=== PATIENT | male | born 1960 | race Caucasian/White ===

== ENCOUNTER 2021-12-30 18:02 | Observation (INO) | payer OTHER ==
[2021-12-30] MEDS ORDERED: Ketorolac Tromethamine 30 MG/ML VIAL ONE (19:16)
[2021-12-30] MEDS ORDERED: traMADol HCl 50 MG TAB PO PRN (20:41)
[2021-12-30] MEDS ORDERED: Dextrose 50% Abboject 50 ML SYRINGE SLOW IVP PRN (20:41)
[2021-12-30] MEDS ORDERED: Ondansetron PF 4 MG/2 ML Vial IVP PRN (20:41)
[2021-12-30] MEDS ORDERED: hydrALAZINE 20 MG/ML VIAL SLOW IVP PRN (20:41)
[2021-12-30] MEDS ORDERED: Dextrose 5% in Water 1,000 ML IV PRN (20:41)
[2021-12-30] MEDS ORDERED: Ondansetron ODT 4 MG TAB PO PRN (20:41)
[2021-12-30] MEDS ORDERED: Ibuprofen 800 MG TAB PO PRN (20:46)
[2021-12-30] MEDS ORDERED: Cyclobenzaprine 10 MG TAB PO PRN (20:46)
[2021-12-30] MEDS ORDERED: Famotidine 20 MG TAB PO SCH (21:00)
[2021-12-30 22:55] VITALS: BMI 30.9
[2021-12-30] MEDS: Acetaminophen 500 MG TAB PO SCH (23:04)
[2021-12-30] MEDS: traMADol HCl 50 MG TAB PO SCH (23:05)
[2021-12-30] MEDS: Gabapentin 100 MG CAP PO SCH (23:05)
[2021-12-30] MEDS: Senokot S 8.6-50 MG TAB PO SCH (23:06)
[2021-12-31 03:41] LABS: #Eosinphils 0.1 thou/uL (0.0-0.7); #Lymphocytes 1.8 thou/uL (1.20-3.40); #Monocytes 0.6 thou/uL (0.11-0.59); #Neutrophils 4.2 thou/uL (1.40-6.50); %Basophils 0.5 % (0.0-1.0); %Eosinophils 1.7 % (0.0-10.0); %Lymphocytes 26.8 % (21.0-51.0); %Monocytes 8.4 % (0.0-10.0); %Neutrophils 62.7 % (42.0-75.0); Hemoglobin 11.8 g/dL (14.0-18.0); Mean Corpuscular HGB CONC 35.2 g/dL (32.0-36.0); Mean Corpuscular Hemoglobin 32.3 pg (27.0-31.0); Mean Corpuscular Volume 91.8 fL (78.0-98.0); Mean Platelet Volume 6.4 fL (7.4-10.4); Platelet Count 189 thou/uL (130-400); RBC Distribution Width 11.9 % (11.5-14.5); Red Blood Cell (RBC) Count 3.64 mill/uL (4.70-6.10); White Blood Cell (WBC) Count 6.6 thou/uL (4.8-10.8)
[2021-12-31 03:59] LABS: Anion Gap 9 mmol/L (10-20); BUN (Urea Nitrogen) 15 mg/dL (8.4-25.7); Calc. Creatinine Clearance 118 mL/min (70-130); Calcium 8.4 mg/dL (7.8-10.44); Carbon Dioxide 28 mmol/L (23-31); Chloride 104 mmol/L (98-107); Glucose 126 mg/dL (80-115); Magnesium 1.8 mg/dL (1.6-2.6); Phosphorus 3.8 mg/dL (2.3-4.7); Potassium 3.4 mmol/L (3.5-5.1); Sodium 138 mmol/L (136-145)
[2021-12-31] MEDS: Acetaminophen 500 MG TAB PO SCH (06:00)
[2021-12-31] MEDS: traMADol HCl 50 MG TAB PO SCH (06:01)
[2021-12-31] MEDS: Gabapentin 100 MG CAP PO SCH (06:02)
[2021-12-31] MEDS ORDERED: Magnesium 2 GM/50 ML(in water) 2 GM in Premix Bag 1 BAG IVPB SCH (08:00)
[2021-12-31] MEDS ORDERED: Potassium Phosphate 30 MMOL in Sodium Chloride 0.9% 250 ML 250 ML IVPB SCH (08:30)
[2021-12-31] MEDS ORDERED: Valsartan 80 MG TAB PO SCH (09:00)
[2021-12-31] MEDS ORDERED: Ezetimibe 10 MG TAB PO SCH (09:00)
[2021-12-31] MEDS ORDERED: Aspirin 81 mg Enteric Coated Tablet PO SCH (09:00)
[2021-12-31] MEDS ORDERED: Polyethylene Glycol 3350 17 GM Packet PO SCH (09:00)
[2021-12-31] MEDS ORDERED: Cholecalciferol 1,000 UNITS (25 MCG) TAB PO SCH (09:00)
[2021-12-31] MEDS ORDERED: Vilazodone Hcl [Viibryd] 40 MG Tablet PO SCH (09:00)
[2021-12-31] MEDS ORDERED: Vitamin E 400 UNITS CAP PO SCH (09:00)
[2021-12-31] MEDS: Senokot S 8.6-50 MG TAB PO SCH (09:15)
[2021-12-31 11:06] VITALS: TEMP 98.7
[2021-12-31 16:11] LABS: SARS-CoV-2 PCR by NAA Not Detected (NotDetected)
[2021-12-31] MEDS ORDERED: Atorvastatin Calcium 40 MG TAB PO SCH (21:00)
[2021-12-31] MEDS ORDERED: Melatonin 3 MG TAB PO SCH (21:00)
== END 2021-12-31 13:29 | disposition home or self-care (01) ==
LOC: ERS 18:02 → INTOOBSV 20:46 → IMCU/EMU 20:46
PROVIDERS: ADMIT Surgery; ATTEND Surgery
DX: S22.43XA Multiple fractures of ribs, bilateral, initial encounter for closed fracture (principal); G89.11 Acute pain due to trauma; I25.10 Atherosclerotic heart disease of native coronary artery without angina pectoris; I10 Essential (primary) hypertension; E78.5 Hyperlipidemia, unspecified; Z79.82 Long term (current) use of aspirin; Z79.899 Other long term (current) drug therapy; Z95.5 Presence of coronary angioplasty implant and graft; Z20.822 Contact with and (suspected) exposure to COVID-19; V80.918A Animal-rider injured in other transport accident, initial encounter; V80.010A Animal-rider injured by fall from or being thrown from horse in noncollision accident, initial encounter; Y93.52 Activity, horseback riding
CPT/HCPCS: 36415; 71045; 80048; 83735; 84100; 85025; 96374; 96375; G0378; G0390; J1885; J3475; J7050; U0003; U0005

== ENCOUNTER 2022-01-16 13:03 | Outpatient (CLI) | payer OTHER | END 2022-01-16 13:04 | disposition home or self-care (01) | LOC: BICRAD 13:03 | PROVIDERS: ATTEND Surgery | DX: S29.9XXA Unspecified injury of thorax, initial encounter (principal) | CPT/HCPCS: 71046 ==